=== PATIENT | male | born 2000 | race African-American/Black ===

== ENCOUNTER 2018-06-11 22:49 | Emergency (ER) | payer MEDICAID ==
[~2018-06-11] VITALS: Ht 193 cm; Wt 73.0 kg
[2018-06-12 00:07] VITALS: BP 135/69
[2018-06-12] MEDS ORDERED: IBUPROFEN 600MG TABLET PO ONE (00:45)
[2018-06-12] MEDS ORDERED: TETANUS, DIPHTHERIA, PERTUSSIS VAC/PF 0.5ML (>7YR OLD) IM ONE (01:45)
== END 2018-06-12 02:39 | disposition home or self-care (01) ==
LOC: ER 22:49
DX: S91.112A Laceration without foreign body of left great toe without damage to nail, initial encounter (principal); S00.03XA Contusion of scalp, initial encounter; F10.129 Alcohol abuse with intoxication, unspecified; X58.XXXA Exposure to other specified factors, initial encounter; Y93.89 Activity, other specified; Y92.89 Other specified places as the place of occurrence of the external cause; Y99.8 Other external cause status; Y90.9 Presence of alcohol in blood, level not specified
CPT/HCPCS: 12001; 73630; 90471; 90715; 99284